=== PATIENT | female | born 1975 | race American Indian/Alaskan Native ===

== ENCOUNTER 2016-07-18 15:27 | Outpatient (CLI) | payer BC ==
--- NOTE | 2016-07-19 09:35 | Ultrasound Report ---
TRANSABDOMINAL AND TRANSVAGINAL PELVIC ULTRASOUND: 07/18/16 15:27:00 CLINICAL: Lost IUD string. Check IUD placement. FINDINGS: Transabdominal and transvaginal pelvic ultrasound demonstrated a retroflexed mildly enlarged fibroid uterus measuring 13.6 x 5.6 x 6.8 cm. Posterior fundal calcified intramural fibroid measures 2.4 x 1.9 x 2.0 cm. The endometrium is normal and measures 6 mm AP thickness. In IUD is located within the uterine cavity in the lower uterine segment. The distal tip of the IUD is near the internal cervical os. There is mild fluid or anechoic mucous in the endocervical canal. Normal right ovary with a dominant 1.8 cm follicle. The right ovary measures 2.3 x 2.1 x 2.5cm. A left ovary was not visualized. No adnexal mass. No free fluid. Normal urinary bladder. IMPRESSION: 1. Abnormally low position of the IUD in the lower uterine segment near the internal cervical os. 2. Fibroid uterus with a dominant 2.4 cm fibroid. 3. Normal right ovary with a dominant 1.8 cm follicle. 4. No left ovary identified.
== END 2016-07-18 15:28 | disposition home or self-care (01) ==
LOC: SPVWC 15:27
PROVIDERS: ATTEND Family Medicine
DX: T83.32XA Displacement of intrauterine contraceptive device, initial encounter (principal); D25.9 Leiomyoma of uterus, unspecified
CPT/HCPCS: 76830; 76856

== ENCOUNTER 2016-11-08 08:16 | Day surgery (SDC) | payer BC ==
[2016-11-08] MEDS ORDERED: XYLOCAINE MPF 2% ONE (08:31)
[2016-11-08] MEDS ORDERED: SUBLIMAZE ONE (08:31)
[2016-11-08] MEDS ORDERED: DIPRIVAN 10 MG/ML IV ONE ×2 (08:31→10:35)
[2016-11-08] MEDS ORDERED: ANCEF/STERILE WATER 2 GM/20 ML 2 GM/20 ML SYRINGE IV NR (09:00)
--- NOTE | 2016-11-08 09:02 | Short Stay Summary ---
Short Stay Documentation Date of service: 11/08/16 Narrative H&P: The patient is a 41 year old who presents with missed since 7 weeks. - History Principal diagnosis: Missed H&P: obtained from office Past Medical History: hypertension Past Surgical History: (x3) Social history: - Allergies and Medications Current Medications: Allergies No Known Allergies Allergy (Unverified 11/02/16 16:53) Home Medications Medication Instructions Recorded Confirmed Last Taken Type Pnv95/Ferrous Fumarate/FA 1 each PO DAILY 11/02/16 11/02/16 Unknown History [ [place]] - Physical exam General appearance: no acute distress Integumentary: no rash HEENT: Atraumatic Lungs: Clear to auscultation, Normal air movement Heart: Regular rate, Normal S1, Normal S2 Gastrointestinal: normal, normoactive bowel sounds Rectal Exam: deferred - Brief post op/procedure progress note Date of procedure: 11/08/16 Pre-op diagnosis: Missed Post-op diagnosis: same Procedure: D&E Anesthesia: MAC Surgeon: LAURA PATRICIO Estimated blood loss: 50-100ml Pathology: list (products of conception) Specimen disposition: to lab Condition: stable - Hospital course Hospital course: unremarkable - Disposition Condition at discharge: Good Disposition: DC-01 TO HOME OR SELFCARE Short Stay Discharge Plan Activity: no restrictions Weight Bearing Status: Weight Bear as Tolerated Diet: regular Follow up with: LAURA PATRICIO MD [Staff Physician] - 14 Days Prescriptions: HYDROcodone/APAP 5-325 [[place] 5/325] 1 each PO Q4HR PRN #40 tablet PRN Reason: Pain
[2016-11-08] MEDS ORDERED: NACL BACTERIOSTATIC INFILTRATI ONE (09:17)
--- NOTE | 2016-11-08 09:31 | Anesthesia Consultation ---
Anesthesia Consult and Med Hx Date of service: 11/08/16 - Airway Anesthetic Teeth Evaluation: Good, Caps (cap on back left tooth, still off.) ROM Head & Neck: Adequate Mental/Hyoid Distance: Adequate Mallampati Class: Class II Intubation Access Assessment: Probably Good - Pulmonary Exam CTA: Yes - Cardiac Exam Cardiac Exam: RRR - Pre-Operative Health Status ASA Pre-Surgery Classification: ASA2 Proposed Anesthetic Plan: General - Pulmonary Hx Sleep Apnea: Yes (needs to be tested but doc said yes.) - Central Nervous System Hx Psychiatric Problems: No - Endocrine Hx Non-Insulin Dependent Diabetes: Yes (pre-diabetic) - Other Systems Hx Cancer: No
--- NOTE | 2016-11-08 09:32 | Anesthesia Day of Surgery ---
Anesthesia Day of Surgery - Day of Surgery Patient Examined: Yes Patient H&P Reviewed: Yes Patient is NPO: Yes
[2016-11-08] MEDS ORDERED: ZOFRAN IV PRN (09:37)
[2016-11-08 09:59] LABS: Hematocrit 34.7 % (30.3-42.9); Hemoglobin 11.3 gm/dl (10.1-14.3)
[2016-11-08] MEDS ORDERED: VERSED IV NR (10:00)
[2016-11-08] MEDS ORDERED: PERCOCET 5/325 PO PRN (10:00)
[2016-11-08] MEDS ORDERED: NACL 0.9% 1000 ML 1,000 ML IV SCH (10:00)
[2016-11-08] MEDS ORDERED: PEPCID IV NR (10:00)
[2016-11-08] MEDS ORDERED: NACL 0.9% IR ONE (10:02)
[2016-11-08] MEDS ORDERED: ZOFRAN ONE (10:52)
[2016-11-08] MEDS ORDERED: DECADRON ONE (10:52)
--- NOTE | 2016-11-08 11:05 | Operative Report ---
Operative Report Operative Report: Operative report for patient Otis Saini. Preoperative diagnoses: Missed Postoperative diagnosis: Same Procedure: D and E Surgeon: María Cintron M.D. Anesthesia: MAC EBL: Minimal Urine output: 100 mL clear Complications: None Specimens: Products of conception Procedure: Patient was taken to the OR with IV running and in place. She will probably identified as herself. She was given adequate anesthesia. She was then placed in the dorsal lithotomy position and prepped and draped in normal sterile fashion. Attention was turned to the patient's vagina. Her bladder was then drained of approximately 100 mL of clear yellow urine. A bivalve speculum was placed the patient's vagina. Cervix was visualized and grasped with a single-tooth tenaculum. The cervix was then gently dilated up to approximately 29 mm. Following this, a #7 suction curette was inserted into the patient's uterus at the level of the fundus. It was then attached to the suction machine and the curettage was performed removing products of conception. At one point the curet was removed and a large banjo curet was introduced into the uterus to further retrieve any additional products. Following this the suction curette was reintroduced and more tissue was obtained. It was excellent hemostasis noted at the end of this portion of the procedure. At this point all instruments were removed from the patient's vagina. She was then awakened and taken to recovery in stable condition. She tolerated the procedure well
[2016-11-08] MEDS: DILAUDID IV PRN ×2 (11:10→11:20)
--- NOTE | 2016-11-08 11:18 | Post Anesthesia Evaluation ---
- Post Anesthesia Evaluation Patient Participated: Yes Airway Patent: Yes Stable Respiratory Function: Yes Temp > 96.8F: Yes Pain Manageable: Yes Adequeate Hydration: Yes Anesthesia Complications: No Block Receding Appropriately: Not Applicable
[2016-11-08 12:44] VITALS: BP 122/76
[2016-11-08] MEDS ORDERED: NORCO 5/325 PO SCH (13:05)
== END 2016-11-08 13:20 | disposition home or self-care (01) ==
LOC: OR 08:16
PROVIDERS: ATTEND Obstetrics & Gynecology
DX: O02.1 Missed abortion (principal); I10 Essential (primary) hypertension; M19.90 Unspecified osteoarthritis, unspecified site; E66.9 Obesity, unspecified; Z68.41 Body mass index [BMI] 40.0-44.9, adult; Z98.890 Other specified postprocedural states
CPT/HCPCS: 36415; 59820; 85014; 85018; 86850; 86900; 86901; 88305; J0690; J1100; J1170; J2250; J2405; J2704; J3010; J7030